=== PATIENT | female | born 1980 ===

== ENCOUNTER 2018-07-13 14:05 | Emergency (ER) | payer OTHER ==
[2018-07-13 14:19] VITALS: TEMP 97.6
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
[2018-07-13 14:31] VITALS: BMI 32.3
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
[2018-07-13 16:31] VITALS: BP 119/64; PULSE 79; RESP 19; O2SAT 98
== END 2018-07-13 16:30 | disposition home or self-care (01) ==
LOC: ED 14:05
DX: R51 Headache (principal); M54.2 Cervicalgia; M54.6 Pain in thoracic spine; V49.50XA Passenger injured in collision with unspecified motor vehicles in traffic accident, initial encounter; Y92.410 Unspecified street and highway as the place of occurrence of the external cause